=== PATIENT | male | born 1995 | race Caucasian/White ===

== ENCOUNTER 2020-12-02 09:38 | Emergency (ER) | payer MEDICAID ==
[~2020-12-02] VITALS: Ht 170.2 cm; Wt 63.6 kg
[2020-12-02 10:27] VITALS: BP 133/75
--- NOTE | 2020-12-02 10:48 | NUR ---
PT REFUSED COVID SWAB, PROVIDER NOTIFIED
--- NOTE | 2020-12-04 15:14 | NUR ---
Patients strep swab resulted a positive result for Group A strep. Dr. Anderson has written order for Amoxicillin 500 mg PO TID x10 days total 30. Spoke with patient regarding positive result, patient requested that prescription be called in to [facility] in [place]. Called in prescription to listed pharmacy.
== END 2020-12-02 12:54 | disposition home or self-care (01) ==
LOC: ER 09:38
DX: J02.9 Acute pharyngitis, unspecified (principal); Z20.822 Contact with and (suspected) exposure to COVID-19; R50.9 Fever, unspecified
CPT/HCPCS: 87077; 87081; 87880; 99283